=== PATIENT | male | born 1990 | race Hispanic/Latino ===

== ENCOUNTER → 2018-02-02 15:06 | Outpatient (CLI) | payer OTHER, SELFPAY ==
[2018-02-02 16:03] LABS: Add Manual Diff / Slide Review NO; Basophils Percent Auto 0.7 % (0-2); Eosinophils Percent Auto 0.8 % (2-4); Hematocrit 41.3 % (41-53); Hemoglobin 14.5 g/dL (13.5-17.5); Lymphocytes Percent Auto 23.9 % (25-40); Mean Corpuscular HGB Conc 35.1 % (30-36); Mean Corpuscular Hemoglobin 32.3 PG (26-34); Monocytes Percent Auto 9.4 % (3-14); Neutrophils Absolute Auto 4500 /uL (3000-5900); Neutrophils Percent Auto 65.2 % (50-75); Platelet Count 313 X10^3/uL (150-400); Red Blood Cell Count 4.49 X10^6/uL (4.5-5.9); Red Cell Distribution Width 12.6 % (11.6-14.8); White Blood Cell Count 6.9 X10^3/uL (4.5-11.0)
[2018-02-02 16:16] LABS: Alanine Aminotransferase 123 IU/L (21-72); Albumin 4.7 g/dL (3.5-5.0); Albumin Globulin Ratio 1.6 (1.0-2.8); Alkaline Phosphatase 105 U/L (38-126); Aspartate Aminotransferase 82 IU/L (17-59); BUN Creatinine Ratio 17.8 (6-22); Bilirubin Total 0.8 mg/dL (0.2-1.3); Blood Urea Nitrogen 16 mg/dL (9-20); Calcium 9.6 mg/dL (8.4-10.2); Carbon Dioxide 30 mmol/L (22-32); Chloride 100 mmol/L (98-107); Cholesterol 225 mg/dL (140-199); Estimated Glomerular Filt Rate > 60.0 mL/min (>60); Glucose 107 mg/dL (70-100); HDL Cholesterol 58 mg/dL (40-60); HEMOLYSIS < 15 (0-50); Potassium 4.2 mmol/L (3.4-5.1); Sodium 141 mmol/L (137-145); Total Protein 7.7 g/dL (6.3-8.2); Triglycerides 466 mg/dL (35-150)
[2018-02-02 16:46] LABS: Thyroid Stimulating Hormone 2.34 uIU/mL (0.47-4.68)
== END ==
PROVIDERS: PCP Family Medicine; Visit Provider Family Medicine
DX: I10 Essential (primary) hypertension (principal)
CPT/HCPCS: 36415; 80053; 80061; 84443; 85025

== ENCOUNTER 2018-02-10 23:27 | Emergency (ER) | payer OTHER, SELFPAY ==
[2018-02-10 23:48] VITALS: BP 192/110; PULSE 120; RESP 20; TEMP 36.9; O2SAT 95; BMI 48.4
--- NOTE | 2018-02-10 23:54 | ED.ABDPAIN ---
HPI - Abdominal Pain General Chief Complaint: Abdominal Pain Stated Complaint: VOMITING FOR 3 DAYS Time Seen by Provider: 02/10/18 23:41 Source: patient Mode of arrival: ambulatory Limitations: no limitations History of Present Illness HPI narrative: [age] year old male here for evaluation of 3 days of vomiting. He states that he has seen his primary doctor within the past week and had ?blood work ?done. He states he had elevated liver enzymes and is scheduled for a liver ultrasound on Thursday this week. He states that 3 days ago he started having vomiting. No fevers. Is now having abdominal pain. Has had some streaked blood just recently. No fevers. No recent travel. No recent antibiotics. No sick contacts. Related Data Previous Rx's Medication Instructions Recorded trazodone 50 - 100 mg PO HSP PRN #60 tab 04/17/17 clonazepam 1 mg tablet 1 mg PO Q8H #90 tab 02/02/18 metoprolol succinate ER 50 mg 50 mg PO DAILY #90 tab 02/02/18 tablet,extended release 24 hr sildenafil 50 mg tablet 50 mg PO DAILY PRN #7 tab 02/02/18 ondansetron [Zofran ODT] 4 mg PO Q6-8H PRN #14 tab 02/11/18 Allergies Allergy/AdvReac Type Severity Reaction Status Date / Time Penicillins [PENICILLINS] Allergy Unknown Verified 02/10/18 23:50 Review of Systems Constitutional Denies fatigue and Denies fever(s) ENT Ears, Nose, Mouth, and Throat: Denies vertigo and Denies dizziness Cardiovascular Denies chest pain and Denies dyspnea Respiratory Denies cough and Denies dyspnea Gastrointestinal Gastrointestinal: Denies change in stool character, Denies diarrhea, Reports nausea and Reports vomiting Genitourinary Denies dysuria Musculoskeletal Denies myalgias and Denies arthralgias Integumentary/Breasts Denies lesions and Denies rash Neurologic Denies vertigo and Denies dizziness Endocrine Denies fatigue Hematologic/Lymphatic Denies easy bleeding and Denies easy bruising [facility] Medical History ADHD (Chronic) Tachycardia with heart rate 100-120 beats per minute (Chronic) Male circumcision (Resolved) Surgical History No pertinent past surgical history (Acute) History of tonsillectomy (Resolved) Family History Sister Heart disease Grandmother Heart disease Social History Smoking Status: Never smoker alcohol intake: current (4 beers every other day) substance use type: does not use Exam Initial Vital Signs Initial Vital Signs: Vital Signs Temperature 98.4 F 02/10/18 23:48 Pulse Rate 120 H 02/10/18 23:48 Respiratory Rate 20 02/10/18 23:48 Blood Pressure 192/110 H 02/10/18 23:48 Pulse Oximetry 95 02/10/18 23:48 Const General: cooperative, well developed and well groomed Orientation: alert, awake and oriented x3 Resp Effort & Inspection: normal respiratory effort Auscultation: clear to auscultation bilaterally Cardio Rate: tachycardic Rhythm: regular rhythm Pulses: radial pulses present GI Inspection: non-distended Palpation: soft, No firm and tender (Epigastric right upper quadrant) Skin Lesions: no lesions Rashes: no rashes Neuro General: alert, awake and oriented x3 Cognition: normal cognition Speech: speech normal Extrem General: capillary refill normal Psych Appearance: grossly normal and well kempt Course Orders Ordered: ED Orders 02/10/18 23:55 US abdomen complete Stat Complete Blood Count AUTO DIFF Stat Comprehensive Metabolic Panel Stat Lipase Stat Discontinued Medications Sodium Chloride (Normal Saline 0.9%) 1,000 mls @ 1,000 mls/hr IV BOLUS ONE Stop: 02/11/18 00:54 Last Infusion: 02/11/18 01:27 Dose: 0 mls/hr Admin: 02/11/18 00:11 Dose: 1,000 mls/hr Ondansetron HCl (Zofran) 4 mg IV NOW ONE Stop: 02/10/18 23:56 Last Admin: 02/11/18 00:11 Dose: 4 mg Ondansetron HCl (Zofran Odt Prepack) 1 bottle MISC SEEINSTR ONE Stop: 02/11/18 01:46 Last Admin: 02/11/18 01:46 Dose: 1 bottle Vital Signs - 8 hr 02/10/18 23:48 02/11/18 00:57 Temperature 98.4 F Pulse Rate 120 H 96 H Respiratory Rate 20 18 Blood Pressure 192/110 H Blood Pressure [Right Arm] 139/75 H Pulse Oximetry 95 97 MDM - Abdominal Pain Lab Data Attestation: I reviewed the patient's lab results. Result diagrams: 02/11/18 00:10 02/11/18 00:10 Lab Results 02/11/18 02/11/18 Range/Units 00:10 00:10 WBC 9.7 (4.5-11.0) X10^3/uL RBC 4.79 (4.5-5.9) X10^6/uL Hgb 15.5 (13.5-17.5) g/dL Hct 44.3 (41-53) % MCV 92.4 (80-100) fL MCH 32.4 (26-34) PG MCHC 35.0 (30-36) % RDW 12.9 (11.6-14.8) % Plt Count 346 (150-400) X10^3/uL Neut % (Auto) 57.7 (50-75) % Lymph % (Auto) 31.5 (25-40) % [place] % (Auto) 9.1 (3-14) % Eos % (Auto) 0.9 L (2-4) % Baso % (Auto) 0.8 (0-2) % Neut # (Auto) 5600 (0995-3439) /uL Sodium 142 (137-145) mmol/L Potassium 3.6 (3.4-5.1) mmol/L Chloride 97 L (98-107) mmol/L Carbon Dioxide 24 (22-32) mmol/L BUN 20 (9-20) mg/dL Creatinine 1.00 (0.66-1.25) mg/dL Estimated GFR > 60.0 (>60) mL/min BUN/Creatinine Ratio 20.0 (6-22) Glucose 98 (70-100) mg/dL Calcium 8.7 (8.4-10.2) mg/dL Total Bilirubin 0.6 (0.2-1.3) mg/dL AST 105 H (17-59) IU/L ALT 155 H (21-72) IU/L Alkaline Phosphatase 112 (38-126) U/L Total Protein 7.9 (6.3-8.2) g/dL Albumin 4.9 (3.5-5.0) g/dL Globulin 3.0 (1.7-4.1) g/dL Albumin/Globulin Ratio 1.6 (1.0-2.8) Lipase 81 (23-300) U/L Imaging Data US - abdomen: Radiologist's impression: Hepatomegaly and fatty liver Limited visualization most of the pancreas and aorta. Normal gallbladder Upper limits of normal 6 mm common duct MDM Narrative Medical decision making narrative: Patient was given IV Zofran and fluids here in the emergency department. He states that he felt much better after this. Does have slightly elevated LFTs however his ultrasound is not consistent with cholecystitis. After the Zofran and time here in the emergency department his abdominal pain did improve significantly. Will send home with a prescription of Zofran. He was informed he needed to contact the radiology department to see if the ultrasound we did this evening was what was ordered on Thursday of this week. He was instructed to keep all of his scheduled medical appointments. Patient was tachycardic however does have a history of tachycardia and also has not been taking his metoprolol for the past couple days because of all the vomiting. He was given return precautions. He expressed understanding and agreement with plan. Discharge Plan Departure Patient Disposition: Home, Self-Care Clinical Impression: Nausea & vomiting, Abdominal pain Discharge Date/Time: 02/11/18 01:40 Interventions: ED Discharge Assessment Last Done: 02/11/18 01:54 Instructions: DI for Abdominal Pain-Adult, Nausea and Vomiting-Adult Activity Restrictions/Additional Instructions: Recommend that you keep all of your scheduled medical appointments. Highly recommend that you increase your fluid intake. Take the medication as directed as needed for any vomiting. Continue your other medications as directed. Return to the emergency department for any new or worsening symptoms Prescriptions: New ondansetron [Zofran ODT] 4 mg tablet,disintegrating 4 mg PO Q6-8H PRN (Reason: nausea and vomiting) Qty: 14 RF: 0 No Action clonazepam 1 mg tablet 1 mg PO Q8H Qty: 90 RF: 0 sildenafil [Viagra] 50 mg tablet 50 mg PO DAILY PRN (Reason: sexual activity) Qty: 7 RF: 0 metoprolol succinate 50 mg tablet extended release 24 hr 50 mg PO DAILY Qty: 90 RF: 0 trazodone 50 MG tablet 50 - 100 mg PO HSP PRNQty: 60 RF: 2 Stand Alone Forms: Work/School Restrictions
--- NOTE | 2018-02-10 23:55 | DI.US.S_ITS ---
PROCEDURE: US ABDOMEN COMPLETE INDICATIONS: RIGHT UPPER QUADRANT PAIN TECHNIQUE: Real-time scanning was performed of the abdominal and retroperitoneal organs, with image documentation. COMPARISON: None. FINDINGS: Liver: Liver is normal in size and demonstrates diffuse increased echotexture. Gallbladder: No gallstones. No gallbladder wall thickening. pericholecystic fluid. Positive sonographic Iglesias's sign. Biliary ducts: Intrahepatic bile ducts are non-dilated. Extrahepatic bile duct caliber measures 5.6 mm. Normal is 6-7 mm or less in diameter, or 10 mm or less post-cholecystectomy. Pancreas: Obscured by overlying bowel gas. Spleen: Spleen is normal in size and homogeneous in echotexture. Kidneys: Kidneys are normal in size and echotexture. Right kidney measures 12.1 cm long; left kidney measures 11.70 cm long. No hydronephrosis or nephrolithiasis. No solid masses. Aorta: Not visualized due to overlying bowel gas. Iliacs: Proximal common iliac arteries are normal in caliber at less than 2.5 cm. IVC: Intrahepatic inferior vena cava is patent. Miscellaneous: No free abdominal fluid. IMPRESSION: 1. Diffusely increased hepatic echotexture. This finding is most likely secondary to hepatic fatty infiltration although other hepatocellular disease may have a similar appearance. Recommend clinical correlation. 2. No gallstones or gallbladder wall thickening. There is, however, sonographic Iglesias sign. 3. Pancreas obscured by overlying bowel gas. 4. Nonvisualization of aorta. No significant discrepancy with the power and recovery shift engineer radiology preliminary report. Dictated by: Marilia Mahmood M.D. on 02/11/2018 at 8:29 Approved by: Marilia Mahmood M.D. on 02/11/2018 at 8:32
[2018-02-11] MEDS: SODIUM CHLORIDE 0.9% 1,000 ML 1000 ML IV (00:11)
[2018-02-11] MEDS: ONDANSETRON 4 MG/2 ML INJ IV (00:11)
[2018-02-11 00:13] LABS: Add Manual Diff / Slide Review NO; Basophils Percent Auto 0.8 % (0-2); Eosinophils Percent Auto 0.9 % (2-4); Hematocrit 44.3 % (41-53); Hemoglobin 15.5 g/dL (13.5-17.5); Lymphocytes Percent Auto 31.5 % (25-40); Mean Corpuscular Hemoglobin 32.4 PG (26-34); Mean Corpuscular Volume 92.4 fL (80-100); Monocytes Percent Auto 9.1 % (3-14); Neutrophils Absolute Auto 5600 /uL (3000-5900); Neutrophils Percent Auto 57.7 % (50-75); Platelet Count 346 X10^3/uL (150-400); Red Blood Cell Count 4.79 X10^6/uL (4.5-5.9); Red Cell Distribution Width 12.9 % (11.6-14.8); White Blood Cell Count 9.7 X10^3/uL (4.5-11.0)
[2018-02-11 00:33] LABS: Alanine Aminotransferase 155 IU/L (21-72); Albumin 4.9 g/dL (3.5-5.0); Albumin Globulin Ratio 1.6 (1.0-2.8); Alkaline Phosphatase 112 U/L (38-126); Aspartate Aminotransferase 105 IU/L (17-59); Bilirubin Total 0.6 mg/dL (0.2-1.3); Blood Urea Nitrogen 20 mg/dL (9-20); Calcium 8.7 mg/dL (8.4-10.2); Carbon Dioxide 24 mmol/L (22-32); Chloride 97 mmol/L (98-107); Estimated Glomerular Filt Rate > 60.0 mL/min (>60); Glucose 98 mg/dL (70-100); HEMOLYSIS < 15 (0-50); Lipase 81 U/L (23-300); Potassium 3.6 mmol/L (3.4-5.1); Sodium 142 mmol/L (137-145); Total Protein 7.9 g/dL (6.3-8.2)
[2018-02-11 00:57] VITALS: BP 139/75; PULSE 96; RESP 18; O2SAT 97
[2018-02-11] MEDS: ONDANSETRON 4 MG ODT PREPACK 1 BOTTLE MISC (01:46)
== END 2018-02-11 01:40 | disposition home or self-care (01) ==
PROVIDERS: Emergency Provider Emergency Medicine; Family Provider Physician Assistant; PCP Family Medicine
DX: R11.2 Nausea with vomiting, unspecified (principal); R10.9 Unspecified abdominal pain
CPT/HCPCS: 76700; 80053; 83690; 85025; 96361; 96374; 99283; 99284; J2405

== ENCOUNTER 2018-09-06 09:25 | Emergency (ER) | payer OTHER, SELFPAY ==
[2018-09-06 09:43] VITALS: BP 168/98; PULSE 120; RESP 22; TEMP 37.2; O2SAT 95; BMI 53.2
--- NOTE | 2018-09-06 10:04 | ED_ITS ---
HPI - URI/Sore Throat General Chief Complaint: Upper Respiratory Symptoms Stated Complaint: upper left side abdominal pain Time Seen by Provider: 09/06/18 10:04 Source: patient Mode of arrival: ambulatory Limitations: no limitations History of Present Illness HPI Narrative: The patient developed a harsh cough over 1 week ago. He was seen at an urgent care, started on a antitussive and Zithromax. He has no fever or chills. The amount of phlegm in his cough is decreased. He presents now with left lower anterior chest wall pain that started yesterday. He has severe focal pain with inspiration, coughing and motion. He has no associated hemoptysis. A nonsmoker. He has no chronic respiratory illness or heart problems. He has no peripheral edema or lower extremity pain. Related Data Home Medications Medication Instructions Recorded Confirmed azithromycin 250 mg tablet See Rx Instructions .ROUTE .COMPLEX 09/06/18 09/06/18 hydrocodone-homatropine [Hydromet] 09/06/18 Previous Rx's Medication Instructions Recorded clonazepam 1 mg tablet 1 mg PO BID PRN #60 tab 08/19/18 metoprolol succinate ER 50 mg 50 mg PO BID #180 tab 08/25/18 tablet,extended release 24 hr hydrocodone-homatropine [Hydromet] 5 ml PO Q6H PRN #100 ml 09/06/18 Allergies Allergy/AdvReac Type Severity Reaction Status Date / Time Penicillins [PENICILLINS] Allergy Unknown Verified 09/06/18 09:42 Review of Systems Review of Systems ROS Unobtainable: All systems reviewed & are unremarkable except as noted in HPI and below Constitutional Denies chills, Denies fever(s), Denies lethargy and Denies weakness Cardiovascular Reports as per HPI, Reports chest pain, Denies irregular heart rhythm, Denies lightheadedness, Denies palpitations, Denies dyspnea and Denies orthopnea Respiratory Denies cough and Denies dyspnea Gastrointestinal Gastrointestinal: Denies abdominal pain, Denies change in bowel habits, Denies diarrhea, Denies nausea and Denies vomiting Musculoskeletal Denies back pain, Denies numbness and Denies tingling Integumentary/Breasts Denies erythema and Denies rash Neurologic Denies numbness, Denies tingling and Denies weakness Endocrine Denies palpitations [facility] Medical History ADHD (Chronic) Anxiety (Chronic) Hypertension (Chronic) PTSD (post-traumatic stress disorder) (Chronic) Tachycardia with heart rate 100-120 beats per minute (Chronic) Male circumcision (Resolved) Surgical History No pertinent past surgical history (Acute) History of tonsillectomy (Resolved) Family History Sister Heart disease Grandmother Heart disease Social History Smoking Status: Never smoker alcohol intake: current (4 beers every other day) substance use type: does not use Family History Sister Heart disease Grandmother Heart disease Social History Smoking Status: Never smoker alcohol intake: current (4 beers every other day) substance use type: does not use Exam Initial Vital Signs Initial Vital Signs: Vital Signs Temperature 99.0 F 09/06/18 09:43 Pulse Rate 120 H 09/06/18 09:43 Respiratory Rate 22 09/06/18 09:43 Blood Pressure 168/98 H 09/06/18 09:43 Pulse Oximetry 95 09/06/18 09:43 Const General: cooperative and well developed Nutritional Appearance: well nourished Orientation: alert, awake, oriented x3 and not confused [facility] Head: normocephalic and atraumatic Nose: external nose normal Face and sinus: sinuses nontender, face symmetric and No dry mucous membranes Mouth: oral mucosae normal and moist mucous membranes Teeth and gingiva: dentition normal Throat: tonsils normal and uvula midline Neck Neck: No JVD Chest Chest: localized rib tenderness with anteroposterior compression Resp Effort & Inspection: normal respiratory effort, able to speak in complete sentences, no respiratory distress and no use of accessory muscles Auscultation: clear to auscultation bilaterally, no rales, no rhonchi and no wheezes Cardio Rate: regular rate Rhythm: regular rhythm Heart Sounds: no click, no gallops, no murmurs and no rubs Pulses: normal peripheral pulses GI Inspection: non-distended Palpation: soft, no hepatosplenomegaly, No guarding, No pulsatile mass and No tender Auscultation: normal bowel sounds Skin General: no rashes or lesions noted, No jaundice and No petechiae Extrem General: full ROM, no clubbing, cyanosis or edema, no pedal edema and no calf tenderness Course Orders Ordered: ED Orders 09/06/18 10:21 Consult to Respiratory Therapy Evaluate & Treat 09/06/18 10:22 XR chest 2V Stat 09/06/18 10:30 EKG-12 Lead Stat 09/06/18 10:43 B Type Natriuretic Peptide Stat Basic Metabolic Panel Stat Complete Blood Count AUTO DIFF Stat D Dimer Stat Magnesium Stat Troponin & CK Cardiac Panel Stat 09/06/18 11:02 Lactate (Lactic Acid) Stat 09/06/18 12:28 CT angio chest PE protocol Stat Discontinued Medications Albuterol/Ipratropium (Duoneb) 3 ml INH NOW ONE Stop: 09/06/18 10:22 Last Admin: 09/06/18 10:27 Dose: 3 ml Sodium Chloride (Normal Saline 0.9%) 1,000 mls @ 1,000 mls/hr IV BOLUS ONE Stop: 09/06/18 13:27 Last Admin: 09/06/18 12:45 Dose: 1,000 mls/hr Ketorolac Tromethamine (Toradol) 30 mg IV NOW ONE Stop: 09/06/18 10:23 Last Admin: 09/06/18 10:41 Dose: 30 mg Vital Signs - 8 hr 09/06/18 09:43 09/06/18 10:27 09/06/18 13:07 Temperature 99.0 F Pulse Rate 120 H 116 H 96 H Respiratory Rate 22 14 20 Blood Pressure 168/98 H Blood Pressure [Left Arm] 154/87 H Pulse Oximetry 95 93 94 MDM - URI/Sore Throat Lab Data Result diagrams: 09/06/18 10:43 09/06/18 10:43 Lab Results 09/06/18 09/06/18 09/06/18 Range/Units 10:43 10:43 10:43 WBC 8.8 (4.5-11.0) X10^3/uL RBC 4.67 (4.5-5.9) X10^6/uL Hgb 14.6 (13.5-17.5) g/dL Hct 43.7 (41-53) % MCV 93.5 (80-100) fL MCH 31.4 (26-34) PG MCHC 33.5 (30-36) % RDW 13.1 (11.6-14.8) % Plt Count 359 (150-400) X10^3/uL Neut % (Auto) 73.8 (50-75) % Lymph % (Auto) 16.5 L (25-40) % [place] % (Auto) 8.1 (3-14) % Eos % (Auto) 0.9 L (2-4) % Baso % (Auto) 0.7 (0-2) % Neut # (Auto) 6500 (2155-0401) /uL Lymph # (Auto) 1500 (4310-4600) /uL [place] # (Auto) 700 (0-900) /uL Eos # (Auto) 100 (0-450) /uL Baso # (Auto) 100 (0-100) /uL D-Dimer 514 H (<230) ng/mL Sodium 135 L (137-145) mmol/L Potassium 4.3 (3.4-5.1) mmol/L Chloride 98 (98-107) mmol/L Carbon Dioxide 27 (22-32) mmol/L BUN 16 (9-20) mg/dL Creatinine 0.80 (0.66-1.25) mg/dL Estimated GFR > 60.0 (>60) mL/min BUN/Creatinine Ratio 20.0 (6-22) Glucose 106 H (70-100) mg/dL Lactate (0.7-2.1) mmol/L Calcium 9.5 (8.4-10.2) mg/dL Magnesium 2.0 (1.6-2.3) mg/dL Total Creatine Kinase 69 (55-170) U/L CK-MB (CK-2) TNP CK-MB (CK-2) Rel Index TNP Troponin I < 0.012 (0.01-0.034) ng/mL B-Natriuretic Peptide < 100 (<100) 09/06/18 Range/Units 11:02 WBC (4.5-11.0) X10^3/uL RBC (4.5-5.9) X10^6/uL Hgb (13.5-17.5) g/dL Hct (41-53) % MCV (80-100) fL MCH (26-34) PG MCHC (30-36) % RDW (11.6-14.8) % Plt Count (150-400) X10^3/uL Neut % (Auto) (50-75) % Lymph % (Auto) (25-40) % [place] % (Auto) (3-14) % Eos % (Auto) (2-4) % Baso % (Auto) (0-2) % Neut # (Auto) (8189-0258) /uL Lymph # (Auto) (6005-1269) /uL [place] # (Auto) (0-900) /uL Eos # (Auto) (0-450) /uL Baso # (Auto) (0-100) /uL D-Dimer (<230) ng/mL Sodium (137-145) mmol/L Potassium (3.4-5.1) mmol/L Chloride (98-107) mmol/L Carbon Dioxide (22-32) mmol/L BUN (9-20) mg/dL Creatinine (0.66-1.25) mg/dL Estimated GFR (>60) mL/min BUN/Creatinine Ratio (6-22) Glucose (70-100) mg/dL Lactate 1.0 (0.7-2.1) mmol/L Calcium (8.4-10.2) mg/dL Magnesium (1.6-2.3) mg/dL Total Creatine Kinase (55-170) U/L CK-MB (CK-2) CK-MB (CK-2) Rel Index Troponin I (0.01-0.034) ng/mL B-Natriuretic Peptide (<100) Imaging Data Chest x-ray: Radiologist's impression: [address] [address] XRay Report Signed Patient: Nicholas Tiwari EMR#: [id number] : 1990Acct:[id number] Age/Sex: te of Service: 09/06/18 Loc: ED Accession Number: [id number] Procedure: XR chest 2V Ordering Provider: Gt Renteria M.D. PROCEDURE: XR CHEST 2V INDICATIONS: Left lower chest wall pain. TECHNIQUE: 2 views of the chest were acquired. COMPARISON: None. FINDINGS: Surgical changes and devices: None. Lungs and pleura: Lungs are clear considering reduced inspiratory volume. No pleural effusions or pneumothorax. Mediastinum: Mediastinal contours are normal. Heart size is normal. Bones and chest wall: No suspicious bony abnormalities. Soft tissues appear unremarkable. IMPRESSION: Reduced inspiratory volume, mild bibasilar atelectasis, source of current left lower chest pain is not seen. Dictated by: Jayson Cox M.D. on 09/06/2018 at 11:16 Approved by: Jayson Cox M.D. on 09/06/2018 at 11:16 CT scan - chest: Radiologist's impression: [address] [id number] [address] Scan Report Signed Patient: Nicholas Tiwari EMR#: [id number] : 1990Acct:[id number] Age/Sex: MDate of Service: 09/06/18 Loc: ED Accession Number: [id number] Procedure: CT angio chest PE protocol Ordering Provider: Gt Renteria M.D. PROCEDURE: CT ANGIO CHEST PE PROTOCOL INDICATIONS: left anterior chest pain TECHNIQUE: After the administration of intravenous contrast, 2 mm thick sections acquired from the pulmonary apices to the posterior costophrenic angles. 3-dimensional maximum intensity projection (MIP) coronal and sagittal reformats were then acquired through the thorax. For radiation dose reduction, the following was used: automated exposure control, adjustment of mA and/or kV according to patient size. COMPARISON: [facility], CR, XR CHEST 2V, 09/06/2018, 10:48. FINDINGS: Image quality: Excellent. Pulmonary arteries: Pulmonary arteries are normal in size, and demonstrate no intraluminal filling defects to suggest central pulmonary embolism. Lungs and pleura: Lungs are clear considering reduced inspiratory volume. No pleural effusions or pneumothorax. Central and peripheral airways are patent. Mediastinum: Heart size is normal, without pericardial effusion. No mediastinal or hilar adenopathy. Thoracic aorta is normal in caliber and enhancement. Esophagus is normal in caliber, without hiatal hernia. Bones and chest wall: No suspicious bony lesions. Ribs and thoracic spine appear intact throughout. Thyroid gland is not well-seen. No axillary or supraclavicular adenopathy. Abdomen: Visualized upper abdominal solid organs appear normal in the early arterial phase of enhancement. IMPRESSION: Reduced inspiratory volume, crowding of the bronchovascular markings as was also present during plain film imaging earlier today. A pulmonary embolus is not seen, focal pneumonia is not found. Given the reduced inspiration it is not possible to entirely exclude cardiogenic mild pulmonary edema. Dictated by: Jayson Cox M.D. on 09/06/2018 at 12:44 Approved by: Jayson Cox M.D. on 09/06/2018 at 12:46 ECG Data Attestation: I personally reviewed and interpreted this ECG as follows: (Sinus tachycardia rate [address] T wave changes. No ectopy. Normal intervals.) MDM Narrative Medical decision making narrative: The patient's chest wall strain. Pain is improved with the the medications given. There is no evidence of acute coronary, PE or pneumonia. He has a narcotic based cough suppressant home. He will be advised used Advil. He is apparently strained his chest wall from coughing. Discharge Plan Departure Patient Disposition: Home Clinical Impression: Chest wall muscle strain Qualifiers: Encounter type: initial encounter Qualified Code(s): S29.011A - Strain of muscle and tendon of front wall of thorax, initial encounter Instructions: Muscle Strain Activity Restrictions/Additional Instructions: Continue with her current medications. Use the hydrocodone cough suppressant for pain and cough. Advil 3 tablets every 6 hours for pain. Recheck with her doctor in 3 days if not improved. Return here if worse. Prescriptions: New hydrocodone-homatropine [Hydromet] 5-1.5 mg/5 mL syrup 5 ml PO Q6H PRN (Reason: cough) Qty: 100 RF: 0 No Action azithromycin 250 mg tablet See Rx Instructions .ROUTE .COMPLEX RF: 0 clonazepam 1 mg tablet 1 mg PO BID PRN (Reason: anxiety) Qty: 60 RF: 0 metoprolol succinate 50 mg tablet extended release 24 hr 50 mg PO BID Qty: 180 RF: 0 hydrocodone-homatropine [Hydromet] 5-1.5 mg/5 mL syrup RF: 0 Referrals: Blanca Jaime DO [Primary Care Provider] -
--- NOTE | 2018-09-06 10:22 | DI.RAD.S_ITS ---
PROCEDURE: XR CHEST 2V INDICATIONS: Left lower chest wall pain. TECHNIQUE: 2 views of the chest were acquired. COMPARISON: None. FINDINGS: Surgical changes and devices: None. Lungs and pleura: Lungs are clear considering reduced inspiratory volume. No pleural effusions or pneumothorax. Mediastinum: Mediastinal contours are normal. Heart size is normal. Bones and chest wall: No suspicious bony abnormalities. Soft tissues appear unremarkable. IMPRESSION: Reduced inspiratory volume, mild bibasilar atelectasis, source of current left lower chest pain is not seen. Dictated by: Jayson Cox M.D. on 09/06/2018 at 11:16 Approved by: Jayson Cox M.D. on 09/06/2018 at 11:16
[2018-09-06 10:27] VITALS: PULSE 116; RESP 14; O2SAT 93
[2018-09-06] MEDS: ALBUTEROL/IPRATROPIUM 3 ML AMPUL INH (10:27)
[2018-09-06] MEDS: KETOROLAC 60 MG/2 ML VIAL 30 MG IV (10:41)
[2018-09-06 11:06] LABS: Add Manual Diff / Slide Review NO; Basophils Absolute Auto 100 /uL (0-100); Basophils Percent Auto 0.7 % (0-2); Eosinophils Absolute Auto 100 /uL (0-450); Eosinophils Percent Auto 0.9 % (2-4); Hematocrit 43.7 % (41-53); Hemoglobin 14.6 g/dL (13.5-17.5); Lymphocytes Absolute Auto 1500 /uL (1100-4500); Lymphocytes Percent Auto 16.5 % (25-40); Mean Corpuscular HGB Conc 33.5 % (30-36); Mean Corpuscular Hemoglobin 31.4 PG (26-34); Mean Corpuscular Volume 93.5 fL (80-100); Monocytes Absolute Auto 700 /uL (0-900); Monocytes Percent Auto 8.1 % (3-14); Neutrophils Absolute Auto 6500 /uL (1500-7000); Neutrophils Percent Auto 73.8 % (50-75); Platelet Count 359 X10^3/uL (150-400); Red Blood Cell Count 4.67 X10^6/uL (4.5-5.9); Red Cell Distribution Width 13.1 % (11.6-14.8); White Blood Cell Count 8.8 X10^3/uL (4.5-11.0)
[2018-09-06 11:11] LABS: Blood Urea Nitrogen 16 mg/dL (9-20); Calcium 9.5 mg/dL (8.4-10.2); Carbon Dioxide 27 mmol/L (22-32); Chloride 98 mmol/L (98-107); Creatine Kinase 69 U/L (55-170); Estimated Glomerular Filt Rate > 60.0 mL/min (>60); Glucose 106 mg/dL (70-100); HEMOLYSIS 42 (0-50); Potassium 4.3 mmol/L (3.4-5.1); Sodium 135 mmol/L (137-145)
[2018-09-06 11:23] LABS: D Dimer 514 ng/mL (<230); Troponin I < 0.012 ng/mL (0.01-0.034)
[2018-09-06 11:45] LABS: B Type Natriuretic Peptide < 100 (<100)
--- NOTE | 2018-09-06 12:28 | DI.CT.S_ITS ---
PROCEDURE: CT ANGIO CHEST PE PROTOCOL INDICATIONS: left anterior chest pain TECHNIQUE: After the administration of intravenous contrast, 2 mm thick sections acquired from the pulmonary apices to the posterior costophrenic angles. 3-dimensional maximum intensity projection (MIP) coronal and sagittal reformats were then acquired through the thorax. For radiation dose reduction, the following was used: automated exposure control, adjustment of mA and/or kV according to patient size. COMPARISON: [facility], CR, XR CHEST 2V, 09/06/2018, 10:48. FINDINGS: Image quality: Excellent. Pulmonary arteries: Pulmonary arteries are normal in size, and demonstrate no intraluminal filling defects to suggest central pulmonary embolism. Lungs and pleura: Lungs are clear considering reduced inspiratory volume. No pleural effusions or pneumothorax. Central and peripheral airways are patent. Mediastinum: Heart size is normal, without pericardial effusion. No mediastinal or hilar adenopathy. Thoracic aorta is normal in caliber and enhancement. Esophagus is normal in caliber, without hiatal hernia. Bones and chest wall: No suspicious bony lesions. Ribs and thoracic spine appear intact throughout. Thyroid gland is not well-seen. No axillary or supraclavicular adenopathy. Abdomen: Visualized upper abdominal solid organs appear normal in the early arterial phase of enhancement. IMPRESSION: Reduced inspiratory volume, crowding of the bronchovascular markings as was also present during plain film imaging earlier today. A pulmonary embolus is not seen, focal pneumonia is not found. Given the reduced inspiration it is not possible to entirely exclude cardiogenic mild pulmonary edema. Dictated by: Jayson Cox M.D. on 09/06/2018 at 12:44 Approved by: Jayson Cox M.D. on 09/06/2018 at 12:46
[2018-09-06] MEDS: SODIUM CHLORIDE 0.9% 1,000 ML 1000 ML IV (12:45)
[2018-09-06 13:07] VITALS: BP 154/87; PULSE 96; RESP 20; O2SAT 94
[2018-09-06 14:14] VITALS: BP 142/96; PULSE 105; RESP 18; O2SAT 94
== END 2018-09-06 14:16 | disposition home or self-care (01) ==
PROVIDERS: Emergency Provider Emergency Medicine; PCP Family Medicine
DX: S29.011A Strain of muscle and tendon of front wall of thorax, initial encounter (principal); R10.12 Left upper quadrant pain; R07.89 Other chest pain
CPT/HCPCS: 36415; 36591; 71046; 71275; 80048; 82550; 83605; 83735; 83880; 84484; 85025; 85379; 93005; 93010; 94640; 96360; 99283; 99285; J1885; Q9967

== ENCOUNTER → 2018-12-28 15:04 | Outpatient (CLI) | payer OTHER, SELFPAY ==
[2018-12-28 15:31] LABS: Appearance Urine UA CLEAR; Bilirubin Urine UA NEGATIVE (NEGATIVE); Color Urine UA YELLOW; Glucose Urine UA NEGATIVE (Negative); Ketones Urine UA NEGATIVE (NEGATIVE); Leukocyte Esterase Urine UA NEGATIVE (NEGATIVE); Nitrite Urine UA NEGATIVE (Negative); Occult Blood Urine UA NEGATIVE (Negative); Protein Urine UA NEGATIVE (Negative); Specific Gravity Urine UA 1.025 (1.000-1.035); Urobilinogen Urine UA 0.2 E.U./dL (0.2); pH Urine UA 5.5 (4.5-8.0)
[2018-12-28 15:37] LABS: Add Manual Diff / Slide Review NO; Basophils Absolute Auto 100 /uL (0-100); Basophils Percent Auto 0.7 % (0-2); Eosinophils Absolute Auto 100 /uL (0-450); Eosinophils Percent Auto 1.7 % (2-4); Hematocrit 42.1 % (41-53); Hemoglobin 14.7 g/dL (13.5-17.5); Lymphocytes Absolute Auto 2500 /uL (1100-4500); Lymphocytes Percent Auto 31.5 % (25-40); Mean Corpuscular HGB Conc 34.8 % (30-36); Mean Corpuscular Hemoglobin 32.1 PG (26-34); Mean Corpuscular Volume 92.2 fL (80-100); Monocytes Absolute Auto 800 /uL (0-900); Monocytes Percent Auto 9.7 % (3-14); Neutrophils Absolute Auto 4400 /uL (1500-7000); Neutrophils Percent Auto 56.4 % (50-75); Platelet Count 344 X10^3/uL (150-400); Red Blood Cell Count 4.57 X10^6/uL (4.5-5.9); Red Cell Distribution Width 13.1 % (11.6-14.8); White Blood Cell Count 7.9 X10^3/uL (4.5-11.0)
[2018-12-28 16:36] LABS: Alanine Aminotransferase 117 IU/L (21-72); Albumin 4.8 g/dL (3.5-5.0); Albumin Globulin Ratio 1.5 (1.0-2.8); Alkaline Phosphatase 120 U/L (38-126); Aspartate Aminotransferase 65 IU/L (17-59); BUN Creatinine Ratio 21.3 (6-22); Bilirubin Total 0.6 mg/dL (0.2-1.3); Blood Urea Nitrogen 17 mg/dL (9-20); Calcium 9.8 mg/dL (8.4-10.2); Carbon Dioxide 31 mmol/L (22-32); Chloride 98 mmol/L (98-107); Cholesterol 263 mg/dL (140-199); Estimated Glomerular Filt Rate > 60.0 mL/min (>60); Globulin 3.3 g/dL (1.7-4.1); Glucose 92 mg/dL (70-100); HDL Cholesterol 54 mg/dL (40-60); HEMOLYSIS < 15 (0-50); LDL Cholesterol Calculated 135 mg/dL (<100); Potassium 4.2 mmol/L (3.4-5.1); Sodium 140 mmol/L (137-145); Total Protein 8.1 g/dL (6.3-8.2); Triglycerides 369 mg/dL (35-150)
[2018-12-28 16:47] LABS: Thyroid Stimulating Hormone 2.46 uIU/mL (0.47-4.68)
== END ==
PROVIDERS: PCP Family Medicine; Visit Provider Family Medicine
DX: I10 Essential (primary) hypertension (principal); Z13.220 Encounter for screening for lipoid disorders; Z13.29 Encounter for screening for other suspected endocrine disorder; Z51.81 Encounter for therapeutic drug level monitoring
CPT/HCPCS: 36415; 80053; 80061; 81003; 84443; 85025

== ENCOUNTER → 2019-05-28 10:43 | Outpatient (CLI) | payer OTHER, SELFPAY ==
[2019-05-28 11:32] LABS: Hematocrit 40.9 % (41-53); Hemoglobin 14.3 g/dL (13.5-17.5); Mean Corpuscular HGB Conc 34.8 % (30-36); Mean Corpuscular Hemoglobin 32.5 PG (26-34); Mean Corpuscular Volume 93.4 fL (80-100); Platelet Count 348 X10^3/uL (150-400); Red Blood Cell Count 4.38 X10^6/uL (4.5-5.9); Red Cell Distribution Width 12.8 % (11.6-14.8); White Blood Cell Count 8.9 X10^3/uL (4.5-11.0)
[2019-05-28 11:49] LABS: Appearance Urine UA CLEAR; Bilirubin Urine UA NEGATIVE (NEGATIVE); Color Urine UA YELLOW; Glucose Urine UA NEGATIVE (Negative); Ketones Urine UA NEGATIVE (NEGATIVE); Leukocyte Esterase Urine UA NEGATIVE (NEGATIVE); Nitrite Urine UA NEGATIVE (Negative); Occult Blood Urine UA NEGATIVE (Negative); Protein Urine UA NEGATIVE (Negative); Urobilinogen Urine UA 0.2 E.U./dL (0.2); pH Urine UA 6.5 (4.5-8.0)
[2019-05-28 11:55] LABS: Creatinine Urine Random 144.2 mg/dL
[2019-05-28 12:00] LABS: Microalbumi Creatinin Ratio Ur 12.4 ug/mg CR (<30); Microalbumin Urine Random 1.8 mg/dL (0-1.6)
[2019-05-28 12:57] LABS: Neutrophils Absolute Manual 6141 /uL (3000-5900); RBC Morphology Normal Morphology; Total Cells Counted 100
[2019-05-28 13:17] LABS: Alanine Aminotransferase 81 IU/L (<50); Albumin 4.6 g/dL (3.5-5.0); Albumin Globulin Ratio 1.5 (1.0-2.8); Alkaline Phosphatase 118 U/L (38-126); Aspartate Aminotransferase 66 IU/L (17-59); BUN Creatinine Ratio 15.6 (6-22); Bilirubin Total 0.6 mg/dL (0.2-1.3); Blood Urea Nitrogen 14 mg/dL (9-20); Calcium 9.1 mg/dL (8.4-10.2); Carbon Dioxide 32 mmol/L (22-32); Chloride 98 mmol/L (98-107); Cholesterol 194 mg/dL (140-199); Estimated Glomerular Filt Rate > 60.0 mL/min (>60); Globulin 3.1 g/dL (1.7-4.1); Glucose 107 mg/dL (70-100); HDL Cholesterol 58 mg/dL (40-60); HEMOLYSIS < 15 (0-50); LDL Cholesterol Calculated 96 mg/dL (<100); Potassium 4.5 mmol/L (3.4-5.1); Sodium 138 mmol/L (137-145); Total Protein 7.7 g/dL (6.3-8.2); Triglycerides 199 mg/dL (35-150)
[2019-05-28 13:48] LABS: Thyroid Stimulating Hormone 1.17 uIU/mL (0.47-4.68)
== END ==
PROVIDERS: PCP Family Medicine; Visit Provider Family Medicine
DX: Z30.09 Encounter for other general counseling and advice on contraception (principal); E78.5 Hyperlipidemia, unspecified; I10 Essential (primary) hypertension; R94.5 Abnormal results of liver function studies
CPT/HCPCS: 36415; 80053; 80061; 81003; 82043; 82570; 84443; 85025

== ENCOUNTER → 2019-06-08 17:48 | Outpatient (CLI) | payer OTHER, SELFPAY ==
--- NOTE | 2019-06-08 18:13 | DI.RAD.S_ITS ---
PROCEDURE: XR ANKLE RT MIN 3V INDICATIONS: Right Ankle Strain TECHNIQUE: 3 views of the ankle were acquired. COMPARISON: None. FINDINGS: Bones: No fractures or dislocations. Ankle mortise is normally aligned. No suspicious bony lesions. Soft tissues: No tibiotalar joint effusion. Achilles tendon appears normal. IMPRESSION: No ankle fracture or dislocation. Dictated by: Mau Moise M.D. on 06/08/2019 at 19:52 Approved by: Mau Moise M.D. on 06/08/2019 at 19:52
== END ==
PROVIDERS: PCP Family Medicine; Visit Provider Family Medicine
DX: S96.911A Strain of unspecified muscle and tendon at ankle and foot level, right foot, initial encounter (principal); X58.XXXA Exposure to other specified factors, initial encounter
CPT/HCPCS: 73610